=== PATIENT | female | born 2000 | race Two or more races ===

== ENCOUNTER 2024-04-16 09:21 | Emergency (ER) | payer OTHER ==
[~2024-04-16] VITALS: Ht 162.6 cm; Wt 64.4 kg
[2024-04-16 10:00] VITALS: BP 116/85; O2SAT 99
[2024-04-16] MEDS ORDERED: DEXAMETHASONE SODIUM PHOSPHATE 4 MG/ML VIAL IM STA (10:09)
[2024-04-16] MEDS ORDERED: CETIRIZINE HCL 5 MG/5 ML ML PO STA (10:09)
[2024-04-16] MEDS ORDERED: CODEINE PHOSPHATE/GUAIFENESIN 5 ML ML PO STA (10:09)
[2024-04-16] MEDS ORDERED: ACETAMINOPHEN 500 MG GEL..CAP PO STA (10:10)
[2024-04-16 12:26] LABS: HEMATOCRIT 42.7 % (36.0-45.00); HEMOGLOBIN 14.9 g/dL (12.0-15.00); MEAN CELL VOLUME 89.6 fL (80.00-100.00); MEAN CORPUSCULAR HEMOGLOBIN 31.4 pg (27.00-32.0); PLATELET COUNT 168 K/uL (150-450); RED BLOOD COUNT 4.76 M/uL (4.00-6.00); RED CELL DISTRIBUTION WIDTH 13.5 % (11.5-14.5)
[2024-04-16] MEDS ORDERED: ACETAMINOPHEN500 M1 PO (13:23)
[2024-04-16] MEDS ORDERED: ALL DAY ALLERGY10 M3 PO (13:23)
[2024-04-16] MEDS ORDERED: AZITHROMYCIN500 MG PO (13:23)
[2024-04-16] MEDS ORDERED: LEVALBUTER0.63 MG/3 IH (13:23)
[2024-04-16] MEDS ORDERED: MUCINEX DM ER1 EAC1 PO (13:23)
== END 2024-04-16 13:47 | disposition home or self-care (01) ==
LOC: ER 09:23
PROVIDERS: General Practice
DX: J11.1 Influenza due to unidentified influenza virus with other respiratory manifestations (principal)